=== PATIENT | female | born 1980 | race African-American/Black ===

== ENCOUNTER 2018-03-23 13:38 | Emergency (ER) | payer BC ==
[~2018-03-23] VITALS: Ht 157.5 cm; Wt 72.6 kg
[2018-03-23 13:43] VITALS: BP 176/118
--- NOTE | 2018-03-23 13:54 | NUR ---
PT AMBULATED TO ER BED 04
--- NOTE | 2018-03-23 14:15 | NUR ---
PT COMES TO ER WITH INTERMITTENT NON RADIATING GRADUAL ONSET OCCIPITAL HEADACHE FOR 3 DAYS, WORSENING TODAY. REPORTS "FEEL LEFT EYE HEAVINESS" DENIES DIZZINESS OR CHNAGES IN VISION. PT AAOX4, FACIAL GRIMACING NOTED UPON ASSESSMENT. NEURO ASSESSMENT INTACT. NO FACIAL GRIMACING, ROXANA EQUAL HAND SCALEMAN, CLEAR SPEECH. PT DENIES CP OR SOB. BP ELEVATED AT 176/102. DR RAMIREZ AT BEDSIDE FOR EXAM. PT DOES REPORT LOTS OF STRESS LATELY AND ANXIETY. DENIES SI. WILL CONT TO MONITOR FOR ANY CHNAGES IN CONDITION.
[2018-03-23] MEDS ORDERED: LORazepam 1 MG TAB PO ONE (14:20)
--- NOTE | 2018-03-23 14:46 | NUR ---
BP 142/101, DR JACOBSON UPDATED ON STATUS.
[2018-03-23 15:06] LABS: EOSINOPHILS # (AUTO) 0.1 K/uL (0-0.4); HEMOGLOBIN 13.8 g/dL (12.0-16.0); LYMPHOCYTES # (AUTO) 1.2 K/uL (2.5-16.5); MEAN CORPUSCULAR HGB CONC 35 g/dL (33-37); MONOCYTES # (AUTO) 0.3 K/uL (0.8-1.0); MONOCYTES % (AUTO) 7.1 % (1.7-9.3); NEUTROPHILS # (AUTO) 2.5 K/uL (1.8-7.7); RED CELL DISTRIBUTION WIDTH 13.4 % (11.6-13.7)
[2018-03-23 15:13] LABS: BASOPHILS # (AUTO) 0.2 K/uL (0.00-0.22); BASOPHILS % (AUTO) 3.8 % (0.0-2.0); HEMATOCRIT 39.4 % (36-48); LYMPHOCYTES % (AUTO) 28.4 % (20.5-51.1); MEAN CORPUSCULAR HEMOGLOBIN 31 pg (27-31); MEAN CORPUSCULAR VOLUME 89.2 fL (80-94); NEUTROPHILS % (AUTO) 58.7 % (42.2-75.2); PLATELET COUNT (AUTO) 192 K/uL (140-450); RED BLOOD CELL COUNT(AUTO) 4.41 MIL/uL (4.20-5.40); WHITE BLOOD COUNT (AUTO) 4.2 K/uL (4.8-10.8)
[2018-03-23 15:15] LABS: ANION GAP 13.1 (8-16); CARBON DIOXIDE 26.4 mmol/L (21-32); CREATININE 0.7 mg/dL (0.6-1.3); POTASSIUM 3.5 mmol/L (3.5-5.1)
[2018-03-23 15:21] LABS: ALBUMIN 4.3 g/dL (3.4-5.0); TOTAL BILIRUBIN 0.6 mg/dL (0.0-1.0)
[2018-03-23 16:00] VITALS: BP 141/98
--- NOTE | 2018-03-23 16:00 | NUR ---
Patient discharged with v/s stable. Written and verbal after care instructions given and explained. Patient verbalized understanding. Ambulatory with steady gait. All questions addressed prior to discharge. Advised to follow up with PMD.
== END 2018-03-23 16:00 | disposition home or self-care (01) ==
LOC: MED 13:38
DX: F41.9 Anxiety disorder, unspecified (principal); F43.9 Reaction to severe stress, unspecified; I10 Essential (primary) hypertension
CPT/HCPCS: 36415; 71045; 80053; 81002; 81025; 84484; 85025; 93005; 99285; Q0092

== ENCOUNTER 2020-06-07 08:13 | Emergency (ER) | payer BC, OTHER ==
[~2020-06-07] VITALS: Ht 152.4 cm; Wt 80.7 kg
[2020-06-07 08:19] VITALS: BP 181/101
--- NOTE | 2020-06-07 08:25 | NUR ---
Pt ambulated to bed 3 with steady gait.
--- NOTE | 2020-06-07 08:39 | NUR ---
39 Y/F PRESENTS TO ED FOR RECTAL PAIN, POSSIBLE HEMORRHOIDS. NO BLEEDING, REPORTS SLIGHT CONSTIPATION LAST BM TODAY, NORMAL. DENIES N/V/D OR ABD PAIN. REPORTS 3/10 PAIN, NONRADIATING. ABD SOFT NON DISTENDED. BP 181/107 AT TRIAGE, DENIES DIZZINESS/LIN/BLURRY VISION, HAS BP MEDS BUT DID NOT TAKE THIS AM HX- HTN
--- NOTE | 2020-06-07 08:49 | NUR ---
ERMD AT BEDSIDE.
--- NOTE | 2020-06-07 08:50 | NUR ---
Female Vp Construction accompanied female patient for Rectal Exam.
[2020-06-07 09:04] VITALS: BP 181/101
--- NOTE | 2020-06-07 09:04 | NUR ---
Patient discharged with v/s stable. Written and verbal after care instructions given and explained. Patient alert, oriented and verbalized understanding of instructions. Ambulatory with steady gait. All questions addressed prior to discharge. ID band removed. Patient advised to follow up with PMD. Rx of DOCUSATE AND HEMORRHOIDAL RECTAL OINTMENT given. Patient educated on indication of medication including possible reaction and side effects. Opportunity to ask questions provided and answered.
== END 2020-06-07 09:04 | disposition home or self-care (01) ==
LOC: MED 08:13
DX: K64.8 Other hemorrhoids (principal); F32.9 Major depressive disorder, single episode, unspecified; J45.909 Unspecified asthma, uncomplicated; I10 Essential (primary) hypertension
CPT/HCPCS: 99282

== ENCOUNTER 2020-06-16 17:08 | Emergency (ER) | payer OTHER ==
[~2020-06-16] VITALS: Ht 162.6 cm; Wt 81.2 kg
[2020-06-16 17:13] VITALS: BP 156/119
[2020-06-16] MEDS ORDERED: KETOROLAC 30 MG/ML VIAL IM ONE (17:45)
[2020-06-16 18:32] VITALS: BP 185/116
== END 2020-06-16 18:24 | disposition home or self-care (01) ==
LOC: MED 17:08
DX: S16.1XXA Strain of muscle, fascia and tendon at neck level, initial encounter (principal); J45.909 Unspecified asthma, uncomplicated; I10 Essential (primary) hypertension; X58.XXXA Exposure to other specified factors, initial encounter; Y93.F2 Activity, caregiving, lifting; Y99.8 Other external cause status
CPT/HCPCS: 96372; 99283; J1885

== ENCOUNTER 2020-06-19 06:30 | Emergency (ER) | payer OTHER ==
[~2020-06-19] VITALS: Ht 162.6 cm; Wt 81.2 kg
[2020-06-19 06:40] VITALS: BP 191/111
--- NOTE | 2020-06-19 06:40 | NUR ---
PT TAKEN TO BED 11
--- NOTE | 2020-06-19 06:40 | NUR ---
C/O HIGH BLOOD PRESSURE AND NECK PAIN X 3 DAYS. 7/10 PAIN. TOOK LOSARTAN 100MG PO AT 0600 TODAY. DENIES ANY N,V, BLURRY VISION, OR LIN. PT ALSO TAKES ATENOLOL 25MG 2X/DAY (LAST DOSE TAKEN WAS YESTERDAY). STEADY GAIT. EQUAL ARM STRENGTH ON UPPER EXTREM. FAST SCREEN NEG. VSS. A&O X4. HEART SOUND S1S2 PRESENT. LUNG SOUNDS CLEAR ALL THROUGHOUT. NKDA. PMH: HTN.
--- NOTE | 2020-06-19 07:06 | NUR ---
Pt report given to ALETHA ARENAS. Transfer of care at this time.
--- NOTE | 2020-06-19 07:08 | NUR ---
RECEIVED REPORT FROM ALETHA [facility]ENN AND [facility]
[2020-06-19] MEDS ORDERED: ACETAMINOPHEN 325 MG TAB PO ONE (07:15)
[2020-06-19] MEDS ORDERED: atenoloL 25 MG TAB PO ONE (07:15)
--- NOTE | 2020-06-19 08:10 | NUR ---
PT SLEEPPING IN BED AT THIS TIME BP MEDS GIVE. CURRENT BP IS 175/106.
[2020-06-19 08:26] VITALS: BP 168/101
== END 2020-06-19 08:27 | disposition home or self-care (01) ==
LOC: MED 06:30
DX: M54.2 Cervicalgia (principal); M54.9 Dorsalgia, unspecified; I10 Essential (primary) hypertension; J45.909 Unspecified asthma, uncomplicated
CPT/HCPCS: 93005; 99283

== ENCOUNTER 2020-10-18 19:31 | Emergency (ER) | payer OTHER ==
[~2020-10-18] VITALS: Ht 160 cm; Wt 83.9 kg
[2020-10-18 19:32] VITALS: BP 173/102
--- NOTE | 2020-10-18 19:35 | NUR ---
TO LOBBY AMBULATORY A/W BED
--- NOTE | 2020-10-18 20:10 | NUR ---
ERMD EVALUATING PT AT BEDSIDE.
--- NOTE | 2020-10-18 20:10 | NUR ---
PT 39 Y/O FEMALE BIB SELF FOR C/O R SHOULDER PAIN RADIAITNG TO R SIDE OF NECK X 1 WEEK. PT ADMITS TO TAKING OTC MEDICATION FOR PAIN MANAGEMENT WITH INEFFECTIVE RESULTS. 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 "IT HURTS THE MOST WHEN I TRY TO TURN PATIENTS." PT RADIAL PULSES EQUAL AND STRONG BILAT. SKIN IS ARM AND DRY TO TOUCH PT ABDUCT SHOULDER BUT PAIN IS PROVOKED WHEN RESISTENCE IS APPLIED. PT CMS INTACT CAP REFIL <3. MEDHX: DENIES ALLERGIES: NKA
--- NOTE | 2020-10-18 20:12 | NUR ---
ERMD GAVE VERBAL ORDER TO CANCEL EKG ORDER.
[2020-10-18] MEDS ORDERED: KETOROLAC 15 MG/ML VIAL IM ONE (20:15)
--- NOTE | 2020-10-18 20:41 | NUR ---
XRAY AT BEDSIDE.
[2020-10-18 21:30] VITALS: BP 148/89
== END 2020-10-18 21:30 | disposition home or self-care (01) ==
LOC: MED 19:31
DX: M25.511 Pain in right shoulder (principal)
CPT/HCPCS: 73030; 96372; 99283; J1885

== ENCOUNTER 2020-12-17 03:05 | Emergency (ER) | payer OTHER ==
[~2020-12-17] VITALS: Ht 157.5 cm; Wt 77.1 kg
[2020-12-17 03:20] VITALS: BP 165/90
--- NOTE | 2020-12-17 03:25 | NUR ---
TO BED AMBULATORY
--- NOTE | 2020-12-17 03:42 | NUR ---
40 YR OLD FEMALE PRESENTED TO THE ER FOR CC OF VAGINAL BLEEDING. PT IS AOX4. PT STATES LIGHT VAGINAL BLEEDING THAT STARTED APPROXIMATELY 4 HRS AGO. PT STATES NO PAIN, STATES NO CRAMPING, STATES NO NAUSEA, AND STATES NO VOMITING. PT STATES BEING APPROXIMATELY 9 WEEKS , STATES HAS NOT SEEN OBGYN YET FOR CARE, STATES UNKNOWN EXPECTED DELIVERY DATE, AND STATES A1. PT IS UNABLE TO PROVIDE URINE SAMPLE AT THIS TIME. PT DENIES OTHER MEDICAL COMPLAINTS. BED IS LOCKED IN LOWEST POSITION WITH 1 SIDE RAIL UP AND CALL LIGHT WITHIN REACH. WILL CONTINUE TO MONITOR. HISTORY- HTN ALLERGIES- NONE MEDICATION- ATENOLOL
[2020-12-17 03:44] LABS: BASOPHILS % (AUTO) 0.4 % (0.0-2.0); EOSINOPHILS # (AUTO) 0.1 K/uL (0-0.4); EOSINOPHILS % (AUTO) 1.7 % (0.0-4.0); HEMATOCRIT 39.1 % (36-48); HEMOGLOBIN 13.8 g/dL (12.0-16.0); LYMPHOCYTES # (AUTO) 1.5 K/uL (2.5-16.5); LYMPHOCYTES % (AUTO) 24.4 % (20.5-51.1); MEAN CORPUSCULAR HEMOGLOBIN 32 pg (27-31); MEAN CORPUSCULAR HGB CONC 35 g/dL (33-37); MEAN CORPUSCULAR VOLUME 91.2 fL (80-94); MONOCYTES # (AUTO) 0.4 K/uL (0.8-1.0); MONOCYTES % (AUTO) 7.1 % (1.7-9.3); NEUTROPHILS % (AUTO) 66.4 % (42.2-75.2); PLATELET COUNT (AUTO) 235 K/uL (140-450); RED BLOOD CELL COUNT(AUTO) 4.29 MIL/uL (4.20-5.40); RED CELL DISTRIBUTION WIDTH 13.8 % (11.6-13.7)
[2020-12-17 03:47] LABS: ANION GAP 14.7 (8-16); CARBON DIOXIDE 22.9 mmol/L (21-32); CREATININE 0.6 mg/dL (0.6-1.3); POTASSIUM 3.6 mmol/L (3.5-5.1)
--- NOTE | 2020-12-17 03:51 | NUR ---
ERMD AT BEDSIDE FOR MEDICAL EVALUATION.
--- NOTE | 2020-12-17 04:00 | NUR ---
ULTRASOUND AT BEDSIDE
--- NOTE | 2020-12-17 04:28 | NUR ---
PT WAS FOUND AWAKE IN SEMI-FOWLERS IN BED. PT STATES NO DISTRESS. PT HAS EQUAL RISE AND FALL UPON RESPIRATIONS. BED LOCKED IN LOWEST POSITION. WILL CONTINUE TO MONITOR.
--- NOTE | 2020-12-17 04:28 | NUR ---
PT AMBULATED TO RESTROOM.
--- NOTE | 2020-12-17 04:33 | NUR ---
PT AMBULATED BACK TO BED FROM RESTROOM.
--- NOTE | 2020-12-17 04:51 | NUR ---
Urine sample collected and walked to lab.
[2020-12-17 05:08] LABS: APPEARANCE,URINE CLEAR (CLEAR); BILIRUBIN,URINE NEGATIVE (NEGATIVE); BLOOD, URINE NEGATIVE (NEGATIVE); COLOR,URINE YELLOW (YELLOW); LEUKOCYTE ESTERASE ,URINE NEGATIVE (NEGATIVE); NITRITE, URINE NEGATIVE (NEGATIVE); UGLUCOSE NEGATIVE (NEGATIVE)
--- NOTE | 2020-12-17 05:42 | NUR ---
CAROLINA CASTRO AT BEDSIDE FOR MEDICAL EVALUATION.
[2020-12-17 05:55] VITALS: BP 162/92
== END 2020-12-17 05:55 | disposition home or self-care (01) ==
LOC: MED 03:05
DX: O46.8X1 Other antepartum hemorrhage, first trimester (principal); I10 Essential (primary) hypertension; Z3A.01 Less than 8 weeks gestation of pregnancy
CPT/HCPCS: 36415; 76801; 80048; 81003; 84702; 85025; 86900; 86901; 99284

== ENCOUNTER 2020-12-17 14:28 | Emergency (ER) | payer OTHER ==
[~2020-12-17] VITALS: Ht 157.5 cm; Wt 53.5 kg
[2020-12-17 14:35] VITALS: BP 125/73
--- NOTE | 2020-12-17 14:35 | NUR ---
40 Y/O F BIB SELF WITH C/C VAGINAL BLEEDING. PT STATES SHE WAS DISCHARGED FROM [facility] AT 6AM THIS MORNING, AND STATES VAGINAL BLEEDING WORSEN. PT STATES SHE IS 6 WEEKS . P 0 A 2. PT STATES ASSOCIATED ABDOMINAL CRAMPING X 1 DAY. PT DENIES DIZZINESS, HEADACHE, CP, SOB. PT PLACED ONTO WHEAT GROWER, BED LOCKED IN LOWEST POSITION, SIDE RAILS X1. HX: HTN MEDS: ATENOLOL NKA
--- NOTE | 2020-12-17 14:48 | NUR ---
AMBULATED TO BED 4
--- NOTE | 2020-12-17 15:15 | NUR ---
PT IS IN SEMI-FOWLERS POSITION, BOTH EYES OPENED IN POSITION OF COMFORT. ALL PT NEEDS MET AT THIS TIME. CARDIAC MONTIOR IN PLACE, BED LOCKED IN LOWEST POSITION, SIDE RAILS X 1, CALL LIGHT IN REACH.
--- NOTE | 2020-12-17 15:53 | NUR ---
DR. ROMERO AT BEDSIDE EVALUATING PT
[2020-12-17] MEDS: ACETAMINOPHEN EXTRA STRENGTH 500 MG TAB PO ONE (16:36)
--- NOTE | 2020-12-17 16:36 | NUR ---
LAB AT BEDSIDE
--- NOTE | 2020-12-17 16:57 | NUR ---
ULTRASOUND AT BEDSIDE
[2020-12-17 17:01] LABS: BASOPHILS % (AUTO) 0.3 % (0.0-2.0); EOSINOPHILS # (AUTO) 0.1 K/uL (0-0.4); EOSINOPHILS % (AUTO) 0.9 % (0.0-4.0); HEMATOCRIT 33.8 % (36-48); HEMOGLOBIN 11.9 g/dL (12.0-16.0); LYMPHOCYTES # (AUTO) 0.9 K/uL (2.5-16.5); LYMPHOCYTES % (AUTO) 13.7 % (20.5-51.1); MEAN CORPUSCULAR HEMOGLOBIN 32 pg (27-31); MEAN CORPUSCULAR HGB CONC 35 g/dL (33-37); MEAN CORPUSCULAR VOLUME 91.3 fL (80-94); MONOCYTES # (AUTO) 0.4 K/uL (0.8-1.0); MONOCYTES % (AUTO) 6.2 % (1.7-9.3); NEUTROPHILS % (AUTO) 78.9 % (42.2-75.2); PLATELET COUNT (AUTO) 206 K/uL (140-450); RED CELL DISTRIBUTION WIDTH 13.6 % (11.6-13.7); WHITE BLOOD COUNT (AUTO) 6.3 K/uL (4.8-10.8)
--- NOTE | 2020-12-17 17:30 | NUR ---
PT PRESENT WITH BOTH EYES OPENED LAYING SUPINE IN POSITION OF COMFORT. ALL PT NEEDS MET AT THIS TIME. CARDIAC MONTIOR IN PLACE, BED LOCKED IN LOWEST POSITION, SIDE RAILS X 1, CALL LIGHT IN REACH.
--- NOTE | 2020-12-17 18:30 | NUR ---
PT STATES PAIN 08/24. ERMD MADE AWARE, ORDERS PLACED AND ADVISED TO START IV.
[2020-12-17] MEDS ORDERED: MORPHINE SULFATE 4 MG/ML SYR IVP ONE (18:35)
[2020-12-17] MEDS ORDERED: KETOROLAC 15 MG/ML VIAL IVP ONE (18:35)
[2020-12-17] MEDS ORDERED: NACL 0.9% 1,000 ML IV SCH (18:35)
[2020-12-17] MEDS ORDERED: ONDANSETRON 4 MG/2 ML VIAL IVP ONE (18:35)
--- NOTE | 2020-12-17 18:45 | NUR ---
Elma lambert in [facility] - 12/17/20 at 1937 by ALIZA UNSUCCESSFUL AT IV ESTABLISHMENT AT THIS TIME
--- NOTE | 2020-12-17 19:35 | NUR ---
UNSUCCESSFUL AT IV ESTABLISHMENT AT THIS TIME. ERMD MADE AWARE, ADVISED TO ATTEMPT IV FOR PAIN MANAGEMENT ORDERS.
--- NOTE | 2020-12-17 19:36 | NUR ---
RECEIVED REPORT FROM ALETHA WOLFF FOR CONTINUATION OF CARE AT THIS TIME.
--- NOTE | 2020-12-17 19:36 | NUR ---
REPORT AND CONTINUITY OF CARE GIVEN TO ALETHA MCBRIDE.
[2020-12-17] MEDS: KETOROLAC 30 MG/ML VIAL IM ONE (19:48)
--- NOTE | 2020-12-17 19:49 | NUR ---
PATIENT A/OX4; GCS 15; PAIN 10/10 IN ABDOMINAL REGION; +VAGINAL BLEEDING; DENIES ANY N/V/D; BREATHING UNLABORED AND SYMMETRICAL; STEADY GAIT; DENIES ANY DYSURIA.
--- NOTE | 2020-12-17 20:11 | NUR ---
Patient discharged with v/s stable. Written and verbal after care instructions given and explained. Patient alert, oriented and verbalized understanding of instructions. Ambulatory with steady gait. All questions addressed prior to discharge. ID band removed. Patient advised to follow up with PMD. Rx of IBUPROFEN; TYLENOL; ZOFRAN given. Patient educated on indication of medication including possible reaction and side effects. Opportunity to ask questions provided and answered.
[2020-12-17 20:12] VITALS: BP 116/64
== END 2020-12-17 20:11 | disposition home or self-care (01) ==
LOC: MED 14:28
DX: O03.4 Incomplete spontaneous abortion without complication (principal); I10 Essential (primary) hypertension; Z3A.01 Less than 8 weeks gestation of pregnancy
CPT/HCPCS: 36415; 76801; 85025; 96372; 99284; J1885

== ENCOUNTER 2021-01-08 18:25 | Inpatient (IN) | payer OTHER, SELFPAY ==
[~2021-01-08] VITALS: Ht 172.7 cm; Wt 94.8 kg
[2021-01-08 18:32] VITALS: BP 161/88
--- NOTE | 2021-01-08 18:32 | NUR ---
PATIENT ASSISTED TO BED BY [facility] BY STAND/PIVOT/SIT.
[2021-01-08] MEDS ORDERED: IBUPROFEN 800 MG TAB PO ONE (18:35)
[2021-01-08] MEDS ORDERED: ACETAMINOPHEN EXTRA STRENGTH 500 MG TAB PO ONE (18:35)
--- NOTE | 2021-01-08 18:45 | NUR ---
DR. SWEENEY IS EVALUATING PATIENT AT BEDSIDE.
--- NOTE | 2021-01-08 18:46 | NUR ---
40 Y/O F BIBA FROM [employer] WITH C/C COVID-LIKE SYMPTOMS. 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 TODAY, SHE BEGAN EXPERIENCING SYMPTOMS 8 HOURS AGO. [facility] STATES FEVER, CHILLS, BODY ACHES, SHORTNESS OF BREATH. PER [facility], ON SCENE TYMPANIC TEMPERATURE OF 103.7. ORAL TEMPERATURE PERFORMED IN ER 105.0. COLD MEASURES APPLIED TO PT. SPO2 BASELINE 97% ON ROOM AIR. PT PLACED ONTO TOW CAR DRIVER; LUNG SOUNDS BED LOCKED IN LOWEST POSITION, SIDE RAILS X 1, CALL LIGHT IN REACH. PMH: HTN MEDS: UNABLE TO OBTAIN NKA SX: MISCARRIAGE 01/05 @ [facility]
[2021-01-08] MEDS ORDERED: hydrALAZINE 20 MG/ML VIAL IVP ONE (18:50)
[2021-01-08] MEDS ORDERED: PIPERACILLIN/TAZOBACTAM 3.375 GM in DEXTROSE 5% 50 ML IV ONE (18:50)
[2021-01-08] MEDS ORDERED: NACL 0.9% 1,000 ML IV ONE ×3 (18:50→19:05)
--- NOTE | 2021-01-08 19:10 | NUR ---
XRAY AT BEDSIDE
--- NOTE | 2021-01-08 19:23 | NUR ---
Ultrasound at bedside.
--- NOTE | 2021-01-08 19:24 | NUR ---
Report given to ALETHA Rivera, who assumed care for patient.
[2021-01-08 19:43] LABS: MAGNESIUM 1.6 mg/dL (1.8-2.4); URIC ACID 5.3 mg/dL (2.6-7.2)
[2021-01-08 19:46] LABS: FIBRINOGEN 287 mg/dL (200-400); HEMATOCRIT 28.5 % (36-48); HEMOGLOBIN 9.8 g/dL (12.0-16.0); MEAN CORPUSCULAR HEMOGLOBIN 32 pg (27-31); MEAN CORPUSCULAR HGB CONC 34 g/dL (33-37); MEAN CORPUSCULAR VOLUME 93.2 fL (80-94); PLATELET COUNT (AUTO) 204 K/uL (140-450); RED BLOOD CELL COUNT(AUTO) 3.05 MIL/uL (4.20-5.40); RED CELL DISTRIBUTION WIDTH 15.4 % (11.6-13.7); WHITE BLOOD COUNT (AUTO) 5.6 K/uL (4.8-10.8)
[2021-01-08 19:54] LABS: D-DIMER 620 ng/ml (0-400)
[2021-01-08 20:02] LABS: LYMPHOCYTES % (MANUAL) 6 % (20-46); MONOCYTES % (MANUAL) 2 % (5-12)
[2021-01-08] MEDS ORDERED: PIPERACILLIN/TAZOBACTAM 3.375 GM VIAL IV ONE (20:13)
[2021-01-08 20:46] LABS: APPEARANCE,URINE CLEAR (CLEAR); BILIRUBIN,URINE NEGATIVE (NEGATIVE); BLOOD, URINE TRACE-L (NEGATIVE); COLOR,URINE YELLOW (YELLOW); LEUKOCYTE ESTERASE ,URINE NEGATIVE (NEGATIVE); NITRITE, URINE NEGATIVE (NEGATIVE); UGLUCOSE NEGATIVE (NEGATIVE)
[2021-01-08 23:10] LABS: ALBUMIN 3.6 g/dL (3.4-5.0); CREATININE 0.8 mg/dL (0.6-1.3); TOTAL BILIRUBIN 0.6 mg/dL (0.0-1.0)
[2021-01-08] MEDS ORDERED: POTASSIUM CHLORIDE 10 MEQ TABER PO ONE (23:30)
[2021-01-09] MEDS ORDERED: MORPHINE SULFATE 4 MG/ML SYR IVP PRN (01:20)
[2021-01-09] MEDS ORDERED: HYDROcodone/APAP 5/325 MG 1 TAB TAB PO PRN (01:20)
[2021-01-09] MEDS ORDERED: ONDANSETRON 4 MG/2 ML VIAL IVP PRN (01:20)
[2021-01-09] MEDS ORDERED: ACETAMINOPHEN 325 MG TAB PO PRN (01:20)
[2021-01-09] MEDS: NACL 0.9% 1,000 ML IV SCH ×2 (02:10→14:07)
--- NOTE | 2021-01-09 02:59 | NUR ---
Patient will be admitted to care of DR OJEDA. Admited to [facility] . Will go to room 125A. Belongings list completed. Report to ALETHA BRUNO .
--- NOTE | 2021-01-09 03:10 | NUR ---
RECEIVED PT AAOX4 , FROM ER / KAYLEE , NID - O2 SAT WNL . IV SITE INTACT AND PATENT . AMBULATES TO BED . ADM . ASSSESSMENT - DONE . MRSA - REFUSED . POC DISCUSSED AND VERBALIZE UNDERSTANDING . SAFETY MEASURES IN PLACE - CALL LIGHT WITHIH REACH . WILL CONT. MONITOR - NO SPOTTING .
[2021-01-09] MEDS ORDERED: MAG SULF 2000 MG/WATER PREMIX 50 ML IV SCH (03:55)
[2021-01-09] MEDS ORDERED: PIPERACILLIN/TAZOBACTAM 2.25 GM VIAL IV ONE (05:51)
[2021-01-09] MEDS: PIPERACILLIN/TAZOBACTAM 2.25 GM in DEXTROSE 5% 50 ML IV SCH ×3 (06:00→21:24)
--- NOTE | 2021-01-09 06:00 | NUR ---
NO COMPLAIN MADE . VOIDED FREELY .
--- NOTE | 2021-01-09 07:22 | NUR ---
ENDORSED - PT - STABLE .
--- NOTE | 2021-01-09 07:30 | NUR ---
RECEIVED REPORT FROM PEDODONTIST NURSE. PATIENT IN STABLE CONDITION. SAFETY MEASURES IN PLACE, CALL LIGHT WITHIN REACH. WILL CONTINUE TO MONITOR.
[2021-01-09 08:00] VITALS: BP 149/75
--- NOTE | 2021-01-09 08:31 | NUR ---
PATIENT HAS BEEN SCREENED AND CATEGORIZED LOW NUTRITION RISK. PATIENT WILL BE SEEN WITHIN 7 DAYS OF ADMISSION. 01/15/[address]
--- NOTE | 2021-01-09 09:27 | NUR ---
PATIENT ON BEDREST. ASSISTED PATIENT WITH CHARGING HER CELLPHONE. NO DISTRESS AT THIS TIME. WILL CONTINUE TO MONITOR.
[2021-01-09] MEDS ORDERED: ATEN100T6 PO (10:06)
--- NOTE | 2021-01-09 10:25 | NUR ---
SOCIAL WORK NOTE: Patient's Orientation Person Situation Place Time Information Provided By PATIENT Comments SW WAS UNABLE TO MEET PATIENT AT BEDSIDE. SW COMPLETED ASSESSMENT TELEPHONICALLY ACLLING PATIENT'S CELL PHONE: [phone]. Paint Sprayer Sandblaster, Realtionship and Phone Number KATJA SOSA [phone] Healthcare Power of Indirect Fire Infantryman No Does Patient Have a POLST No Identifying Problems No Social Work Triggers Is A Social Work Consult Needed No Mandate Report Filed No Explanation Of Identifying Problems PATIENT IS A 40-YEAR-OLD FEMALE ADMITTED FOR SEPSIS AND PYELONEPHRITIS. PATIENT HAS PMHX OF HYPERTENSION. PATIENT DENIED SUBSTANCE ABUSE AND MENTAL HEALTH HISTORY. Admitted From Home Pre-Admission Level Of Functioning Status Independent/Ambulatory Prior Resources/Services Used In Last 12 Months No Prior Resources Used Prior DME No Prior DME Used Dialysis Comments N/A Living Situation Apartment Lives With Family Patient Had Caregiver No Home Support No Caregiver Issues Financial Issues No Known Financial Issue Referral To The Financial Counselor Needed No Factors/Needs No D/C Needs Identified Pt/Rep Participated In Discharge Plan Yes Patient/Family Agress With Discharge Plan Yes Discharge Plan Comments TENTATIVE DISCHARGE PLAN IS FOR PATIENT TO RETURN HOME. DC Plan Status Initiated
--- NOTE | 2021-01-09 11:35 | NUR ---
DISCHARGE PLANNING: THIS IS A 40 Y/O FEMALE PATIENT FROM HOME, WHO CAME IN DUE TO FEVER AND CHILLS. PAST MEDICAL HISTORY INCLUDE MISCARRIAGE ON 12/17/20 AT 6 WEEKS GESTATION. INITIAL DIAGNOSIS OF SEPSIS, PYELONEPHRITIS AND POSSIBLE ENDOMETRITIS. CT ABDOMEN/PELVIS SHOWED MILD RIGHT SIDED PERINEPHRIC EDEMA, SUSPICIOUS FOR PYELONEPHRITIS, POSSIBLE RENAL CYSTS. CURRENT LABS INCLUDE WBC 5.6, H/H 9.8/28.5, NA/K 138/3.0, BUN/CREA 18/0.8, HCQ QUAT 393, D DIMER 620, FIBRINOGEN 287. ON ZOSYN. NO CONSULTS AT THIS TIME, NOT SEEN BY ATTENDING YET. DC PLAN BACK TO HOME ONCE STABLE.
[2021-01-09 12:00] VITALS: BP 146/80
--- NOTE | 2021-01-09 14:00 | NUR ---
SCHEDULED MEDICATIONS DUE GIVEN. WILL CONTINUE TO MONITOR.
[2021-01-09 16:00] VITALS: BP 140/82
--- NOTE | 2021-01-09 17:45 | NUR ---
PATIENT WENT TO BATHROOM AND BACK TO BED. WILL CONTINUE TO MONITOR.
--- NOTE | 2021-01-09 19:10 | NUR ---
GAVE REPORT TO IRONER OR PRESSER FOR CONTINUITY OF CARE. PATIENT IN STABLE CONDITION.
--- NOTE | 2021-01-09 19:15 | NUR ---
RECEIVED PATIENT FROM AM SHIFT NURSE FOR CONTINUITY OF CARE. AAOX4. RESPIRATIONS EVEN, UNLABORED. NO S/S RESPIRATORY DISTRESS. NO C/O PAIN. NO S/S ACUTE DISTRESS. SKIN WARM, DRY. IV SITE TO RIGHT THUMB PATENT/INTACT, INFUSING FLUIDS WELL. ABDOMEN SOFT, NONTENDER, NONDISTENDED. BOWEL SOUNDS ACTIVE X4 QUADRANTS. PATIENT IS CONTINENT OF B/B. PLAN OF CARE DISCUSSED. CALL LIGHT WITHIN REACH.
[2021-01-09 20:00] VITALS: BP 157/92
--- NOTE | 2021-01-09 22:35 | NUR ---
ENDORSED PATIENT TO ALETHA CHU FOR CONTINUITY OF CARE.
--- NOTE | 2021-01-09 22:36 | NUR ---
ENDORSED PATIENT TO ALETHA CHU FOR CONTINUITY OF CARE.
--- NOTE | 2021-01-09 22:37 | NUR ---
RECEIVED BEDSIDE ENDORSEMENT FROM AM SHIFT RN. PT IS ASLEEP, RESPIRATION EVEN AND UNLABORED, ON ROOM AIR, AOX4, IVF INFUSING, SAFETY MEASURES IN PLACE, PLAN OF CARE DISCUSSED, CALL LIGHT WITHIN REACH.
[2021-01-10] VITALS: BP 154/88
--- NOTE | 2021-01-10 00:15 | NUR ---
V/S TAKEN, KEPT COMFORTABLE, CALL LIGHT WITHIN REACH.
--- NOTE | 2021-01-10 02:00 | NUR ---
PT ASLEEP, RESPIRATION EVEN AND UNLABORED, CALL LIGHT WITHIN REACH.
[2021-01-10 04:00] VITALS: BP 151/92
[2021-01-10] MEDS: NACL 0.9% 1,000 ML IV SCH (04:00)
[2021-01-10] MEDS: PIPERACILLIN/TAZOBACTAM 2.25 GM in DEXTROSE 5% 50 ML IV SCH ×2 (04:24→13:00)
--- NOTE | 2021-01-10 04:28 | NUR ---
ZOSYN IVPB GIVEN ORDERED, NO A/R NOTED. PT IS USING HER CELLPHONE. CALL LIGHT WITHIN REACH.
[2021-01-10 05:28] LABS: BASOPHILS % (AUTO) 0.3 % (0.0-2.0); EOSINOPHILS % (AUTO) 0.8 % (0.0-4.0); HEMATOCRIT 28.8 % (36-48); HEMOGLOBIN 9.9 g/dL (12.0-16.0); LYMPHOCYTES # (AUTO) 0.6 K/uL (2.5-16.5); LYMPHOCYTES % (AUTO) 13.6 % (20.5-51.1); MEAN CORPUSCULAR HEMOGLOBIN 32 pg (27-31); MEAN CORPUSCULAR HGB CONC 34 g/dL (33-37); MEAN CORPUSCULAR VOLUME 92.5 fL (80-94); MONOCYTES # (AUTO) 0.4 K/uL (0.8-1.0); MONOCYTES % (AUTO) 9.9 % (1.7-9.3); NEUTROPHILS # (AUTO) 3.4 K/uL (1.8-7.7); NEUTROPHILS % (AUTO) 75.4 % (42.2-75.2); PLATELET COUNT (AUTO) 213 K/uL (140-450); RED BLOOD CELL COUNT(AUTO) 3.11 MIL/uL (4.20-5.40); WHITE BLOOD COUNT (AUTO) 4.5 K/uL (4.8-10.8)
[2021-01-10 05:59] LABS: ALBUMIN 3.4 g/dL (3.4-5.0); ANION GAP 9.4 (8-16); CARBON DIOXIDE 26.7 mmol/L (21-32); CREATININE 0.7 mg/dL (0.6-1.3); POTASSIUM 3.1 mmol/L (3.5-5.1); TOTAL BILIRUBIN 0.5 mg/dL (0.0-1.0)
--- NOTE | 2021-01-10 07:25 | NUR ---
PT STABLE, NO DISTRESS, BEDSIDE ENDORSEMENT GIVEN TO AM SHIFT RN FOR CONTINUITY OF CARE.
[2021-01-10 08:00] VITALS: BP 157/92
[2021-01-10] MEDS ORDERED: hydrALAZINE 25 MG TAB PO PRN (09:55)
[2021-01-10] MEDS ORDERED: atenoloL 50 MG TAB PO SCH (09:55)
[2021-01-10 12:00] VITALS: BP 149/79
[2021-01-10 16:00] VITALS: BP 147/76
[2021-01-10] MEDS ORDERED: LEVO750T51 PO (19:04)
--- NOTE | 2021-01-10 19:30 | NUR ---
PER DR. DOS SANTOS PATIENT IS OK TO D/C CIRILO.
--- NOTE | 2021-01-10 19:30 | NUR ---
RECEIVED ENDORSEMENT FROM AM SHIFT RN, ON ROOM AIR, NO DISTRESS, DENIES PAIN, IVF INFUSING, SAFETY MEASURES IN PLACE, PLAN OF CARE DISCUSSED, CALL LIGHT WITHIN REACH.
--- NOTE | 2021-01-10 20:00 | NUR ---
D/C ORDER RECEIVED AND MY CHARGE NURSE ALY IS HELPING ON THE PAPER WORKS.
[2021-01-10 20:09] VITALS: BP 145/85
--- NOTE | 2021-01-10 21:30 | NUR ---
ALL PERSONAL BELONGINGS GIVEN TO PATIENT. FLU VACCINE REFUSED. D/C INSTRUCTIONS GIVEN, VERBALIZED UNDERSTANDING. PT IS STABLE, NO DISTRESS, PT IS PICKED UP BY .
== END 2021-01-10 21:30 | disposition home or self-care (01) | DRG 720 ==
LOC: MED 18:25 → MTU 01-09 01:29 → MMU 01-09 01:48
PROVIDERS: ADMIT Hospitalist; ATTEND Hospitalist
DX: A41.9 Sepsis, unspecified organism (principal); I10 Essential (primary) hypertension; J45.909 Unspecified asthma, uncomplicated; Z20.822 Contact with and (suspected) exposure to COVID-19; N12 Tubulo-interstitial nephritis, not specified as acute or chronic; D64.9 Anemia, unspecified; E83.42 Hypomagnesemia; E87.6 Hypokalemia
CPT/HCPCS: 36415; 71045; 76801; 80053; 81001; 83605; 83615; 83735; 84550; 84702; 85025; 85379; 85384; 86900; 86901; 87040; 87086; 87804; 96361; 96365; 96375; 99291; 99292; J0360; J2543; J3475; J7030; J7060

== ENCOUNTER 2021-02-04 16:24 | Emergency (ER) | payer OTHER, SELFPAY ==
[~2021-02-04] VITALS: Ht 162.6 cm; Wt 77.6 kg
[~2021-02-04 16:24] MED LIST: ATEN100T6 PO; LEVO750T51 PO
[2021-02-04 16:33] VITALS: BP 174/103
[2021-02-04 17:21] LABS: BASOPHILS % (AUTO) 0.3 % (0.0-2.0); EOSINOPHILS # (AUTO) 0.2 K/uL (0-0.4); EOSINOPHILS % (AUTO) 4.8 % (0.0-4.0); HEMATOCRIT 37.8 % (36-48); HEMOGLOBIN 13.2 g/dL (12.0-16.0); LYMPHOCYTES # (AUTO) 1.3 K/uL (2.5-16.5); LYMPHOCYTES % (AUTO) 29.8 % (20.5-51.1); MEAN CORPUSCULAR HEMOGLOBIN 31 pg (27-31); MEAN CORPUSCULAR HGB CONC 35 g/dL (33-37); MEAN CORPUSCULAR VOLUME 88.9 fL (80-94); MONOCYTES # (AUTO) 0.3 K/uL (0.8-1.0); NEUTROPHILS # (AUTO) 2.4 K/uL (1.8-7.7); NEUTROPHILS % (AUTO) 57.1 % (42.2-75.2); PLATELET COUNT (AUTO) 198 K/uL (140-450); RED BLOOD CELL COUNT(AUTO) 4.25 MIL/uL (4.20-5.40); RED CELL DISTRIBUTION WIDTH 15.6 % (11.6-13.7); WHITE BLOOD COUNT (AUTO) 4.2 K/uL (4.8-10.8)
[2021-02-04 17:40] LABS: PROTHROMBIN TIME 11.3 secs (10.8-13.4)
[2021-02-04 17:42] LABS: APPEARANCE,URINE SL CLOUDY (CLEAR); BILIRUBIN,URINE NEGATIVE (NEGATIVE); BLOOD, URINE 3+ (NEGATIVE); COLOR,URINE RED (YELLOW); LEUKOCYTE ESTERASE ,URINE TRACE (NEGATIVE); NITRITE, URINE NEGATIVE (NEGATIVE); PH,URINE 6.5 (5.0-9.0); UGLUCOSE NEGATIVE (NEGATIVE)
[2021-02-04 18:01] LABS: RBC,URINE >100 /HPF (0-5)
[2021-02-04 18:07] VITALS: BP 163/102
== END 2021-02-04 18:07 | disposition home or self-care (01) ==
LOC: MED 16:24
DX: N93.9 Abnormal uterine and vaginal bleeding, unspecified (principal); I10 Essential (primary) hypertension
CPT/HCPCS: 36415; 81001; 81002; 81025; 84702; 85025; 85610; 85730; 87086; 99283

== ENCOUNTER 2021-02-13 17:28 | Emergency (ER) | payer OTHER, SELFPAY ==
[~2021-02-13] VITALS: Ht 160 cm; Wt 77.6 kg
[2021-02-13 17:30] VITALS: BP 144/93
--- NOTE | 2021-02-13 17:33 | NUR ---
PATIENT AMBULATED TO BED 11.
--- NOTE | 2021-02-13 18:12 | NUR ---
Patient being evaluated by Dr. Agrawal at bedside.
[2021-02-13 18:39] LABS: BASOPHILS % (AUTO) 0.8 % (0.0-2.0); EOSINOPHILS # (AUTO) 0.2 K/uL (0-0.4); EOSINOPHILS % (AUTO) 3.8 % (0.0-4.0); HEMATOCRIT 33.4 % (36-48); HEMOGLOBIN 11.7 g/dL (12.0-16.0); LYMPHOCYTES # (AUTO) 1.1 K/uL (2.5-16.5); LYMPHOCYTES % (AUTO) 25.1 % (20.5-51.1); MEAN CORPUSCULAR HEMOGLOBIN 31 pg (27-31); MEAN CORPUSCULAR HGB CONC 35 g/dL (33-37); MEAN CORPUSCULAR VOLUME 88.6 fL (80-94); MONOCYTES # (AUTO) 0.3 K/uL (0.8-1.0); MONOCYTES % (AUTO) 6.8 % (1.7-9.3); NEUTROPHILS # (AUTO) 2.7 K/uL (1.8-7.7); NEUTROPHILS % (AUTO) 63.5 % (42.2-75.2); PLATELET COUNT (AUTO) 207 K/uL (140-450); RED BLOOD CELL COUNT(AUTO) 3.77 MIL/uL (4.20-5.40); RED CELL DISTRIBUTION WIDTH 15.4 % (11.6-13.7); WHITE BLOOD COUNT (AUTO) 4.3 K/uL (4.8-10.8)
--- NOTE | 2021-02-13 19:10 | NUR ---
ASSUMED CARE. RECEIVED PATIENT AWAKE AND ALERT IN BED 11 WITH C/O VAGINAL BLEEDING STARTED ON THE OF LAST MONTH. SP AB IN NOVEMBER FOLLOWED BY D & C. IS AWAKE AND ALERT. C/O BEING TIRED. PMH: FIBROIDS NKDA
[2021-02-13 20:05] VITALS: BP 144/93
== END 2021-02-13 20:05 | disposition home or self-care (01) ==
LOC: MED 17:28
DX: N93.8 Other specified abnormal uterine and vaginal bleeding (principal); I10 Essential (primary) hypertension; Z91.018 Allergy to other foods
CPT/HCPCS: 36415; 84702; 85025; 99283

== ENCOUNTER 2021-03-02 23:57 | Emergency (ER) | payer OTHER, SELFPAY ==
[~2021-03-02] VITALS: Ht 162.6 cm; Wt 78.5 kg
[2021-03-03] VITALS: BP 188/102
[2021-03-03 02:04] LABS: BASOPHILS % (AUTO) 0.3 % (0.0-2.0); EOSINOPHILS # (AUTO) 0.2 K/uL (0-0.4); EOSINOPHILS % (AUTO) 4.7 % (0.0-4.0); HEMATOCRIT 31.6 % (36-48); HEMOGLOBIN 10.9 g/dL (12.0-16.0); LYMPHOCYTES # (AUTO) 1.3 K/uL (2.5-16.5); LYMPHOCYTES % (AUTO) 33.3 % (20.5-51.1); MEAN CORPUSCULAR HEMOGLOBIN 31 pg (27-31); MEAN CORPUSCULAR HGB CONC 35 g/dL (33-37); MEAN CORPUSCULAR VOLUME 90.5 fL (80-94); MONOCYTES # (AUTO) 0.3 K/uL (0.8-1.0); MONOCYTES % (AUTO) 7.9 % (1.7-9.3); NEUTROPHILS # (AUTO) 2.1 K/uL (1.8-7.7); NEUTROPHILS % (AUTO) 53.8 % (42.2-75.2); PLATELET COUNT (AUTO) 192 K/uL (140-450); RED BLOOD CELL COUNT(AUTO) 3.49 MIL/uL (4.20-5.40); RED CELL DISTRIBUTION WIDTH 15.5 % (11.6-13.7); WHITE BLOOD COUNT (AUTO) 3.8 K/uL (4.8-10.8)
[2021-03-03 02:05] LABS: APPEARANCE,URINE CLEAR (CLEAR); BILIRUBIN,URINE NEGATIVE (NEGATIVE); BLOOD, URINE 2+ (NEGATIVE); COLOR,URINE YELLOW (YELLOW); LEUKOCYTE ESTERASE ,URINE TRACE (NEGATIVE); NITRITE, URINE NEGATIVE (NEGATIVE); PH,URINE 6.5 (5.0-9.0); UGLUCOSE NEGATIVE (NEGATIVE)
[2021-03-03 02:27] LABS: ALBUMIN 3.6 g/dL (3.4-5.0); ANION GAP 9.3 (8-16); CARBON DIOXIDE 28.8 mmol/L (21-32); CREATININE 0.8 mg/dL (0.6-1.3); POTASSIUM 3.1 mmol/L (3.5-5.1); TOTAL BILIRUBIN 0.2 mg/dL (0.0-1.0)
[2021-03-03 02:29] LABS: PROTHROMBIN TIME 10.9 secs (10.8-13.4)
[2021-03-03 02:32] LABS: WBC,URINE 0-5 /HPF (0-5)
[2021-03-03 02:38] VITALS: BP 134/81
[2021-03-03] MEDS ORDERED: DOCU-299 PO (03:07)
[2021-03-03] MEDS ORDERED: FERR325E14 PO (03:07)
== END 2021-03-03 03:23 | disposition home or self-care (01) ==
LOC: MED 23:57
DX: D25.9 Leiomyoma of uterus, unspecified (principal); N92.0 Excessive and frequent menstruation with regular cycle; I10 Essential (primary) hypertension; Z98.890 Other specified postprocedural states; Z79.899 Other long term (current) drug therapy
CPT/HCPCS: 36415; 76856; 80053; 81001; 83690; 84703; 85025; 85610; 85730; 86886; 86900; 86901; 87086; 99284

== ENCOUNTER 2022-08-21 08:19 | Emergency (ER) | payer OTHER ==
[~2022-08-21] VITALS: Ht 160 cm; Wt 75.7 kg
[~2022-08-21 08:19] MED LIST changes: +DOCU-299 PO; +FERR325E14 PO; -LEVO750T51 PO; +LEVO750T75 PO
[2022-08-21 08:26] VITALS: BP 158/100
--- NOTE | 2022-08-21 08:36 | NUR ---
C/O COUGH/RUNNY NOSE X1 WEEK, STATES THAT SHE TESTED NEGATIVE FOR COVID ON Wednesday08/17/22 NKA PMH: HTN
[2022-08-21] MEDS ORDERED: BENZ150C2 PO (09:37)
[2022-08-21] MEDS ORDERED: FLONAS NS (09:55)
[2022-08-21 10:14] VITALS: BP 162/86
--- NOTE | 2022-08-21 10:14 | NUR ---
Patient discharged with v/s stable. Written and verbal after care instructions given. Patient alert, oriented and verbalized understanding of instructions. Ambulatory with steady gait. All questions addressed prior to discharge. ID band removed. Patient advised to follow up with PMD. Rx of BENZONATATE, FLONASE given. Opportunity to ask questions provided and answered. WORK NOTE HANDED TO PATIENT.
--- NOTE | 2022-08-21 10:15 | NUR ---
The patient's care was reviewed and supervised by Jojo Corona RN.
== END 2022-08-21 10:14 | disposition home or self-care (01) ==
LOC: MED 08:19
DX: J06.9 Acute upper respiratory infection, unspecified (principal); Z20.822 Contact with and (suspected) exposure to COVID-19; I10 Essential (primary) hypertension; Z79.899 Other long term (current) drug therapy
CPT/HCPCS: 71045; 99284

== ENCOUNTER 2023-06-01 07:55 | Emergency (ER) | payer OTHER ==
[~2023-06-01] VITALS: Ht 157.5 cm; Wt 74.4 kg
[~2023-06-01 07:55] MED LIST changes: +BENZ150C2 PO; +FLONAS NS
[2023-06-01 08:05] VITALS: BP 179/106; PULSE 88; RESP 18; TEMP 97.6; O2SAT 100
--- NOTE | 2023-06-01 08:27 | NUR ---
PT AMBULATED TO BED 2
--- NOTE | 2023-06-01 08:36 | NUR ---
xray at bedside
--- NOTE | 2023-06-01 09:05 | NUR ---
Patient appears to be resting comfortably in bed. Vital Signs within normal limits. Respirations even and unlabored. Call light within reach.
[2023-06-01] MEDS ORDERED: NAPR-1704 PO (09:18)
--- NOTE | 2023-06-01 09:35 | NUR ---
long finger splint applied to R middle finger and wrapped with cloth tape. + cms.
[2023-06-01 09:44] VITALS: BP 179/106; PULSE 88; RESP 18; TEMP 97.6; O2SAT 100
--- NOTE | 2023-06-01 09:46 | NUR ---
Patient discharged with v/s stable. Written and verbal after care instructions given and explained. Patient alert, oriented and verbalized understanding of instructions. Ambulatory with steady gait. All questions addressed prior to discharge. ID band removed. Patient advised to follow up with PMD. Rx of NAPROXEN (SENT) given. Patient educated on indication of medication including possible reaction and side effects. Opportunity to ask questions provided and answered. XRAY COPY GIVEN, WORK NOTE GIVEN
== END 2023-06-01 09:44 | disposition home or self-care (01) ==
LOC: MED 07:55
DX: M65.331 Trigger finger, right middle finger (principal); I10 Essential (primary) hypertension; Z79.899 Other long term (current) drug therapy
CPT/HCPCS: 29130; 73130; 81025; 99283; Q0092

== ENCOUNTER 2023-10-23 07:27 | Emergency (ER) | payer OTHER ==
[~2023-10-23] VITALS: Ht 167.6 cm; Wt 79.4 kg
[~2023-10-23 07:27] MED LIST changes: +NAPR-1704 PO
[2023-10-23 07:33] VITALS: BP 161/103; PULSE 73; RESP 18; TEMP 98; O2SAT 99
[2023-10-23] MEDS ORDERED: KETOROLAC 30 MG/ML VIAL IM ONE (08:10)
[2023-10-23] MEDS ORDERED: IBUP-2213 PO (09:01)
[2023-10-23] MEDS ORDERED: CYCL-711 PO (09:01)
[2023-10-23] MEDS ORDERED: LID5T TP (09:01)
[2023-10-23] MEDS ORDERED: LIDOCAINE 5% 1 EA PATCH TP ONE (09:05)
== END 2023-10-23 09:19 | disposition home or self-care (01) ==
LOC: MED 07:27
DX: S46.811A Strain of other muscles, fascia and tendons at shoulder and upper arm level, right arm, initial encounter (principal); S16.1XXA Strain of muscle, fascia and tendon at neck level, initial encounter; I10 Essential (primary) hypertension; Z79.899 Other long term (current) drug therapy; X58.XXXA Exposure to other specified factors, initial encounter; Y93.89 Activity, other specified; Y92.89 Other specified places as the place of occurrence of the external cause; Y99.8 Other external cause status
CPT/HCPCS: 73030; 81025; 96372; 99283; J1885

== ENCOUNTER 2024-01-23 17:54 | Emergency (ER) | payer OTHER ==
[~2024-01-23] VITALS: Ht 160 cm; Wt 78.0 kg
[~2024-01-23 17:54] MED LIST changes: +CYCL-711 PO; +IBUP-2213 PO; +LID5T TP
[2024-01-23 18:49] VITALS: BP 187/102; PULSE 81; RESP 15; TEMP 99; O2SAT 99
[2024-01-23] MEDS ORDERED: IBUP-1842 PO (19:14)
[2024-01-23] MEDS ORDERED: CIPR10SU LEFT EAR (19:14)
== END 2024-01-23 19:23 | disposition home or self-care (01) ==
LOC: MED 17:54
DX: H60.92 Unspecified otitis externa, left ear (principal); I10 Essential (primary) hypertension; Z79.899 Other long term (current) drug therapy
CPT/HCPCS: 99283

== ENCOUNTER 2024-04-16 06:29 | Emergency (ER) | payer OTHER ==
[~2024-04-16] VITALS: Ht 160 cm; Wt 76.7 kg
[~2024-04-16 06:29] MED LIST changes: -BENZ150C2 PO; +BENZ150C7 PO; +CIPR10SU LEFT EAR; +IBUP-1842 PO
[2024-04-16 06:38] VITALS: BP 148/76; PULSE 81; RESP 20; TEMP 97.4; O2SAT 100
[2024-04-16] MEDS ORDERED: ACET-8905 PO (07:24)
[2024-04-16] MEDS ORDERED: IBUP-2213 PO (07:24)
[2024-04-16] MEDS: KETOROLAC 60 MG/2 ML VIAL IM ONE (07:55)
[2024-04-16 10:55] VITALS: BP 126/64; PULSE 78; RESP 19; TEMP 98; O2SAT 99
== END 2024-04-16 08:53 | disposition home or self-care (01) ==
LOC: MED 06:29
DX: M25.512 Pain in left shoulder (principal); M25.511 Pain in right shoulder; I10 Essential (primary) hypertension; Z98.890 Other specified postprocedural states
CPT/HCPCS: 96372; 99283; J1885